=== PATIENT | male | born 1980 | race Caucasian/White ===

== ENCOUNTER 2021-08-10 16:08 | Emergency (ER) | payer SELFPAY ==
[2021-08-10 17:00] VITALS: BP 148/97; PULSE 101; RESP 18; TEMP 36.3; O2SAT 98; BMI 38.4
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
== END 2021-08-10 17:37 | disposition home or self-care (01) ==
LOC: HO.ED 17:27
PROVIDERS: Emergency Provider Emergency Medicine
DX: S39.012A Strain of muscle, fascia and tendon of lower back, initial encounter (principal); S16.1XXA Strain of muscle, fascia and tendon at neck level, initial encounter; M54.2 Cervicalgia; V43.53XA Car driver injured in collision with pick-up truck in traffic accident, initial encounter; Y93.9 Activity, unspecified; Y92.410 Unspecified street and highway as the place of occurrence of the external cause; Y99.9 Unspecified external cause status; Z79.899 Other long term (current) drug therapy
CPT/HCPCS: 99283

== ENCOUNTER 2022-09-12 16:45 | Emergency (ER) | payer BC, SELFPAY ==
[2022-09-12 17:32] VITALS: BP 143/89; PULSE 88; RESP 18; TEMP 36.7; O2SAT 98; BMI 38.4
--- NOTE | 2022-09-12 17:33 | ED_ITS ---
HPI - Extremity Injury (Upper) General Chief Complaint: Skin/Abscess/Foreign Body <Samantha Houston CNP - Last Filed: 09/12/22 18:49> Stated Complaint: cyst on right thumb <Samantha Houston CNP - Last Filed: 09/12/22 18:49> Time Seen by Provider: 09/12/22 18:01 <Samantha Houston CNP - Last Filed: 09/12/22 18:49> Source: patient <Samantha Chen CHRISTIAN Houston - Last Filed: 09/12/22 18:49> Mode of arrival: ambulatory <Samantha Houston CNP - Last Filed: 09/12/22 18:49> Limitations: no limitations <Samantha Houston CNP - Last Filed: 09/12/22 18:49> History of Present Illness HPI narrative: Patient is a 42-year-old male presents emergency department for evaluation of a cyst to the right thumb. He reports approximately 3 weeks ago he tried to drain it, he was able to remove a clear gel-like substance. However it has returned, increasing in size and pain. Pain is made worse with movement of the digit. Denies fevers, chills, numbness or swelling, additional skin lesions/cysts. <Samantha Houston CNP - Last Filed: 09/12/22 18:49> Related Data Home Medications: Previous Rx's Medication Instructions Recorded cyclobenzaprine 10 mg tablet 10 mg PO TID PRN muscle spasm #10 08/10/21 tabs ibuprofen 600 mg tablet 600 mg PO Q8H PRN pain #20 tabs 08/10/21 lidocaine 5 % topical patch 1 patch topical DAILY #15 ea 08/10/21 cephalexin 500 mg capsule 500 mg PO QID 7 days #28 caps 09/12/22 <Samantha Houston CNP - Last Filed: 09/12/22 18:49> Allergies/Adverse Reactions: Allergies Allergy/AdvReac Type Severity Reaction Status Date / Time No Known Allergies Allergy Verified 09/12/22 17:36 [No Known Allergies*] <Samantha Houston CNP - Last Filed: 09/12/22 18:49> Review of Systems 2 Review of Systems: Pertinent positives and negatives as noted in HPI <Samantha Houston CNP - Last Filed: 09/12/22 18:49> Yes all other systems are reviewed and are negative <Samantha Houston CNP - Last Filed: 09/12/22 18:49> [facility] Social History Social History: Social History Advance Directives: No Advance Directives Information Provided: No <Samantha Houston CNP - Last Filed: 09/12/22 18:49> Physical Exam Vital Signs: Vital Signs: Last Vital Signs Temp 98.1 F 09/12/22 17:32 Pulse 88 09/12/22 17:32 Resp 18 09/12/22 17:32 BP 143/89 H 09/12/22 17:32 Pulse Ox 98 09/12/22 17:32 O2 Del Method 09/12/22 17:32 BMI result Body Mass Index 38.4 <Samantha Houston CNP - Last Filed: 09/12/22 18:49> Vital Signs: Last Vital Signs Temp 98.1 F 09/12/22 17:32 Pulse 88 09/12/22 17:32 Resp 18 09/12/22 17:32 BP 143/89 H 09/12/22 17:32 Pulse Ox 98 09/12/22 17:32 O2 Del Method 09/12/22 17:32 BMI result Body Mass Index 38.4 <Max Chaves - Last Filed: 09/12/22 18:34> Appearance: Alert.?Oriented to person, place and time. No acute distress.?Normal affect. CVS: Heart sounds normal. Normal heart rate and rhythm.? Pulses normal.?? Respiratory: No respiratory distress.? Lung sounds clear to auscultation bilate rally??? Skin: Skin warm and dry.? Normal skin color.? Extremities: No lower extremity edema.? Neuro: Moves all extremities spontaneously. Sensation intact bilaterally. Ambulates with normal steady gait. <Samantha Houston CHRISTIAN - Last Filed: 09/12/22 18:49> Appearance: Alert.?Oriented to person, place and time. No acute distress.?Normal affect. CVS: Heart sounds normal. Normal heart rate and rhythm.? Pulses normal.?? Respiratory: No respiratory distress.? Lung sounds clear to auscultation bilaterally??? Skin: Skin warm and dry.? Normal skin color.? Extremities: No lower extremity edema.? Neuro: Moves all extremities spontaneously. Sensation intact bilaterally. Ambulates with normal steady gait. <Max Chaves - Last Filed: 09/12/22 18:34> Medical Decision Making Medical Decision Making MDM Narrative: Patient is a 6-year-old male who presents emergency department for evaluation of a cyst to the right thumb, he is left-hand dominant. Onset approximately 3-4 weeks ago, after attempting self drainage and reoccurred. Physical examination consistent with ganglion cyst. Examination not consistent with septic arthritis. Early cellulitis may be present, given attempted self drainage. Consulted with Orthopedics, CESAR Marcelo, patient to have outpatient follow-up with hand specialist Dr. Benitez. Will cover prophylactically with cephalexin, which is to be sent to patient's pharmacy. A thumb splint was placed, with gentle wrapping. Discussed worrisome signs symptoms of warrant re-evaluation in the emergency department. All questions answered. Stable for discharge. 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 (As noted above) <Samantha Houston CNP - Last Filed: 09/12/22 18:49> Prescription Management I considered prescription management with: Antibiotic <Samantha Houston CNP - Last Filed: 09/12/22 18:49> Discharge Plan Discharge Clinical Impression: Ganglion cyst of finger of right hand <Samantha Houston CNP - Last Filed: 09/12/22 18:49> Patient Disposition: Home, Self-Care <Samantha Houston CNP - Last Filed: 09/12/22 18:49> Instructions: Ganglion Cysts (ED) <Samantha Houston CNP - Last Filed: 09/12/22 18:49> Additional Instructions: As discussed, please contact the orthopedic office first thing tomorrow morning to arrange for a follow-up visit. A prescription for cephalexin was sent to your pharmacy, this is to cover any infectious process, early cellulitis. You can take ibuprofen 200 mg, 3 tablets (600mg) every 6-8 hours as needed for pain, in addition to Tylenol 500 mg, 2 tablets (1,000mg) every 4-6 hours as needed for pain, but not to exceed 3 doses daily (3,000mg).? Leave splint in place to prevent motion of thumb, removed for bathing/washing of hand. <Samantha Houston CNP - Last Filed: 09/12/22 18:49> Prescriptions: New cephalexin 500 mg capsule 500 mg PO QID 7 Days Qty: 28 0RF No Action cyclobenzaprine 10 mg tablet 10 mg PO TID PRN (Reason: muscle spasm) Qty: 10 0RF lidocaine 5 % adhesive patch,medicated 1 patch topical DAILY Qty: 15 0RF Rx Instructions: leave on most painful area for up to 12 hrs ibuprofen 600 mg tablet 600 mg PO Q8H PRN (Reason: pain) Qty: 20 0RF <Samantha Houston CNP - Last Filed: 09/12/22 18:49> Referrals: Belinda Benitez MD [Physician] - <Samantha Houston CNP - Last Filed: 09/12/22 18:49> Stand Alone Forms: Work/School Release <Samantha Houston CNP - Last Filed: 09/12/22 18:49>
== END 2022-09-12 18:52 | disposition home or self-care (01) ==
PROVIDERS: Emergency Provider Emergency Medicine
DX: M67.441 Ganglion, right hand (principal)
CPT/HCPCS: 29130; 99282; 99283

== ENCOUNTER → 2022-09-21 09:10 | Outpatient (BNVA) | payer SELFPAY | PROVIDERS: Visit Provider Orthopaedic Surgery | DX: R22.31 Localized swelling, mass and lump, right upper limb (principal) | CPT/HCPCS: 99202 ==

== ENCOUNTER 2022-09-22 06:42 | Day surgery (SDC) | payer BC, SELFPAY ==
[2022-09-22 07:08] VITALS: BMI 44.6
[2022-09-22 07:11] VITALS: BP 137/87; PULSE 96; RESP 20; TEMP 36.4; O2SAT 97
[2022-09-22 07:36] VITALS: BMI 38.4
[2022-09-22] MEDS: Lactated Ringers 1,000 ML 50 ML IVCONT (07:39)
--- NOTE | 2022-09-22 09:22 | MHC.SHP ---
Pre-Procedural Eval Section A Date of Service: 09/22/22 The patient is an INPATIENT: No Changes since office visit: No Cold of Flu in the past 2 weeks, No New Medical Problems, No Changes in Medication and No Patient answered all questions The History & Physical has been completed within 30 days and I have reviewed it.: Yes Section B Chief Complaint: Localized swelling, mass and lump, right upper wallace Allergies: Allergies Allergy/AdvReac Type Severity Reaction Status Date / Time No Known Allergies Allergy Verified 09/21/22 09:32 [No Known Allergies*] Plan I have reviewed the history and physical and performed a pertinent physical examination on my patient. No changes have occurred unless specified. Time Spent With Patient Time: Total time managing care of this patient today ____ minutes.
--- NOTE | 2022-09-22 09:23 | P.OP_ITS ---
Operative Note Operative Note Date of Service: 09/22/22 Narrative: Operative Note Narrative: Preop diagnosis: 1. Right dorsal thumb soft tissue mass Postop diagnosis: Same Procedure: 1. Right thumb soft tissue mass excisional biopsy and culture 2. Soft tissue rearrangement of skin dorsum of right thumb. 4 cm x 2 cm Surgeon: Belinda Benitez MD Anesthesia: General Anesthesia Findings: A large, 2.3 cm cystic mass filled with brown watery fluid. Implants: None Tourniquet time: 13 minutes EBL: 5.0 ml Specimen: Right thumb mass sent for histopathology, cultures taken of brown fluid Drains: None Complications: None Disposition: Brought to the recovery room in stable condition Plan: Follow-up in 10-14 days for wound check, suture removal and to check pathology Indications: The patient is a 42 year old man with a large soft tissue mass ov er the dorsal aspect of his right thumb MCP joint. The risks and benefits of operative treatment, including but not limited to risk of damage to blood vessels, nerves, tendons, infection, recurrence, persistent pain or numbness, incomplete resolution of preoperative symptoms, or need for further surgery were discussed with the patient and they wished to proceed with surgery. Procedure: Once consent was obtained patient was brought back to the operating suite and placed in the operating table in a supine position. . Perioperative antibiotics and anesthesia was administered by the anesthesia team. A tourniquet was applied to the proximal aspect of the right upper extremity and the limb was prepped and draped in a standard surgical fashion. The limb was elevated exsanguinated with Esmarch bandage and the tourniquet inflated to 250 mm of mercury for a total tourniquet time of 13 minutes. The patient has an approximately 2.5 cm diameter spherical shaped soft tissue mass over the dorsal aspect of his right thumb MCP joint. A 4 cm long longitudinally oriented incision was made over the dorsal aspect of the mass over his right thumb MCP joint. The incision was made through the skin to the subcutaneous tissues using a 15. Blade. The mass was cystic and filled with brown watery fluid. Cultures were taken of the fluid. The cystic mass was then carefully dissected from the skin and subcutaneous tissues using tenotomy and iris scissors. It was then placed on the back table to be sent for histopathology. I did not see any kind of stalk or connection to either the extensor tendons or the MCP joint itself. No other masses were appreciated. The wound was then copiously irrigated with normal saline. At this point the tourniquet was deflated and hemostasis obtained with a brief period of local pressure and bipolar electrocautery. The wound was copiously irrigated with normal saline. The patient had a significant amount of excess skin leaving a significant deformity if repaired primarily.? I then performed a soft tissue rearrangements procedure.? I made another largely longitudinally oriented incision along the radial flap of skin creating an elliptical loss of skin along the length of the incision.? This was carefully removed using a 15. Blade, and sent to pathology.? I felt that this still left too much of a deformity and a 2nd longitudinally oriented incision was made on the ulnar flap of tissue again removing an elliptically shaped amount of skin along the length of the incision. Now satisfied with the skin coverage, the skin edges were reapproximated with 5- 0 Prolene suture. The wound was infiltrated with some 1% lidocaine with epinephrine for postop pain control and a sterile dressing was applied. The patient appears to have tolerated the procedure well and with no complications. All digits were well vascularized conclusion of the case.
--- NOTE | 2022-09-22 09:30 | HO.ANESPROP2 ---
HPI - Anesthesia Eval Consult details Narrative: obese smoker with [facility] for cyst removal right hand PMFSH Active Problems Active Problems: All Active Problems (Updated 09/21/22 @ 10:20 by Mauricio Richards) Mass of skin of right thumb (Acute) Family History Family history of problems with anesthesia: No Surgical History History of Problems with Anesthesia: No Social History Social History Patient Tobacco Use Status: Current everyday Tobacco user Tobacco use type: Cigarette Cigarette Packs Per Day: 1 Cigarettes Per Day: 20.0 Patient Given Instructions on How to Stop Smoking: Yes Date Education Initiated: 09/22/22 Use of substances other than those prescribed or required for medical reasons: No Are you DNR?: No Advance Directives: No Advance Directives Information Provided: Yes 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 Meds Allergies Allergy/AdvReac Type Severity Reaction Status Date / Time No Known Allergies Allergy Verified 09/21/22 09:32 [No Known Allergies*] Active Medications: Current Medications Lactated Ringer's (Lr) 1,000 mls @ 50 mls/hr IVCONT .Q20H MELODIE Last Admin: 09/22/22 07:39 Dose: 50 mls/hr Exam Exam Date and Time: September 22, 2022 0930 Height,Weight and Vital Signs: Height 5 ft 9 in Weight 117.934 kg Last Vital Signs Temp 97.6 F 09/22/22 07:11 Pulse 96 09/22/22 07:11 Resp 20 09/22/22 07:11 BP 137/87 09/22/22 07:11 Pulse Ox 97 09/22/22 07:11 O2 Del Method 09/22/22 07:11 Airway Mallampati Class: II TM Dist: >3cm Neck ROM: Full Heart: rrr Lungs: cta Assessment and Plan Assessment Anesthesia Assessment: Anesthesia Plan Discussed and Chart Reviewed Final Anesthetic Review Family History of Problems with Anesthesia: No History of Problems with Anesthesia: No NPO: Yes ASA Class: II Final Preanesthetic Review: No Changes in Pt Med Stat, Meds/Allgs Chart Reviewed, Consent Obtained/Reviewed and Anes Risks/Benef Reviewed Patient Risk: Intermediate Procedure Risk: Intermediate Anesthetic Plan Anesthetic Plan: GA Disposition: Standard PACU
[2022-09-22 11:10] VITALS: BP 132/73; PULSE 96; RESP 12; TEMP 36.6; O2SAT 97
[2022-09-22 11:15] VITALS: BP 122/87; PULSE 96; RESP 15; O2SAT 97
[2022-09-22 11:20] VITALS: BP 120/86; PULSE 96; RESP 16; O2SAT 96
[2022-09-22 11:25] VITALS: BP 126/84; PULSE 96; RESP 16; O2SAT 96
[2022-09-22 11:40] VITALS: BP 124/75; PULSE 96; RESP 17; TEMP 36.8; O2SAT 97
== END 2022-09-22 12:25 | disposition home or self-care (01) ==
PROVIDERS: Visit Provider Orthopaedic Surgery
PROC: (CPT 26111; principal; 2022-09-22 08:40)
DX: D49.2 Neoplasm of unspecified behavior of bone, soft tissue, and skin (principal); G47.33 Obstructive sleep apnea (adult) (pediatric); E66.9 Obesity, unspecified; Z68.38 Body mass index [BMI] 38.0-38.9, adult; F17.210 Nicotine dependence, cigarettes, uncomplicated
CPT/HCPCS: 26111; 14040; 87070; 87205; 88304; 88305; J0690; J1100; J1885; J2250; J2405; J2795; J3010